=== PATIENT | female | born 2000 | race Two or more races ===

== ENCOUNTER 2023-12-11 11:59 | Emergency (ER) | payer MEDICAID, OTHER ==
[~2023-12-11] VITALS: Ht 160 cm; Wt 71.1 kg
[2023-12-11 14:30] VITALS: BP 100/73; PULSE 106; RESP 18; TEMP 98.8; O2SAT 98
[2023-12-11] MEDS: KETOROLAC TROMETH 30 MG/ML 1ML VIAL IM ONE (15:34)
== END 2023-12-11 15:37 | disposition home or self-care (01) ==
LOC: ER 11:59
DX: M54.6 Pain in thoracic spine (principal); M25.512 Pain in left shoulder; V43.52XA Car driver injured in collision with other type car in traffic accident, initial encounter; Y93.89 Activity, other specified; Y92.410 Unspecified street and highway as the place of occurrence of the external cause; Y99.8 Other external cause status
CPT/HCPCS: 72040; 73030; 96372; 99284; J1885